=== PATIENT | male | born 1945 | race Caucasian/White ===

== ENCOUNTER 2018-09-30 17:14 | Observation (INO) ==
[2018-09-30] MEDS ORDERED: Isovue-370 500 ML BOTTLE IVP ONE ×2 (17:54→18:02)
[2018-09-30] MEDS ORDERED: Aspirin 81 MG TAB.CHEW PO STA (19:34)
[2018-09-30] MEDS ORDERED: Naloxone 0.4 MG/ML INJ IVP PRN (20:35)
[2018-09-30] MEDS ORDERED: Acetaminophen 325 MG TABLET PO PRN (20:35)
[2018-09-30] MEDS ORDERED: Ondansetron 4 MG/2 ML VIAL IVP PRN (20:35)
[2018-09-30] MEDS ORDERED: Nitroglycerin 0.4 MG TAB.SUBL SL PRN (20:40)
[2018-09-30] MEDS ORDERED: Ipratropium/Albuterol Neb 3 ML IH PRN (20:41)
[2018-09-30] MEDS ORDERED: *HR* Heparin 5,000 UNIT/ML VIAL IVP PRN ×2 (21:24)
[2018-09-30] MEDS ORDERED: *HR* Heparin 5,000 UNIT/ML VIAL IVP ONE (21:24)
[2018-09-30] MEDS ORDERED: Heparin 25,000 UNIT/250 ML D5W 25,000 UNIT/250 ML IV.SOLN IVC SCH (21:30)
[2018-09-30] MEDS: Metoprolol XL (24 HR) Succ 25 MG TAB.ER.24H PO SCH (22:29)
[2018-09-30 22:32] LABS: Hematocrit 35.5 % (37.5-50.1); Hemoglobin 11.7 g/dL (12.9-16.9); Mean Corpuscular Hemoglobin 28.8 pg (28.0-33.3); Mean Corpuscular Volume 87.4 fL (83.0-100.0); Mean Platelet Volume 9.2 fL (9.4-12.4); Platelet Count 232 K/mcL (140-400); Red Blood Count 4.06 M/mcL (4.19-5.50); Red Cell Distribution Width 15.9 % (11.5-14.5); White Blood Count 4.9 K/mcL (4.3-11.1)
[2018-09-30 22:41] LABS: Prothrombin Time 11.4 Seconds (9.4-12.1)
[2018-09-30 22:43] LABS: Heparin anti-factor XA UFH 0.02 IU/mL (0.30-0.70)
[2018-09-30] MEDS ORDERED: *HR* HYDROcodone/Acet 5/325 mg TABLET PO PRN (22:45)
[2018-10-01 04:47] LABS: Basophils # 0.1 K/mcL (0.0-0.2); Basophils % 1.2 %; Eosinophils # 0.2 K/mcL (0.0-0.6); Eosinophils % 3.3 %; Hematocrit 39.1 % (37.5-50.1); Hemoglobin 12.9 g/dL (12.9-16.9); Immature Granulocytes % 0.4 % (0-4); Lymphocytes # 0.7 K/mcL (0.6-4.6); Lymphocytes % 15.1 %; Mean Corpuscular Hemoglobin 28.3 pg (28.0-33.3); Mean Corpuscular Volume 85.7 fL (83.0-100.0); Mean Platelet Volume 9.2 fL (9.4-12.4); Monocytes # 0.3 K/mcL (0.0-1.3); Monocytes % 6.8 %; Neutrophils # 3.5 K/mcL (1.6-8.9); Platelet Count 241 K/mcL (140-400); Red Blood Count 4.56 M/mcL (4.19-5.50); Segmented Neutrophils % 73.2 %; White Blood Count 4.8 K/mcL (4.3-11.1)
[2018-10-01 05:06] LABS: BUN/Creatinine Ratio 12 (6-26); Blood Urea Nitrogen 7 mg/dL (8-23); Calcium 8.9 mg/dL (8.6-10.3); Carbon Dioxide 27 mEq/L (23-29); Chloride 99 mEq/L (98-107); Glucose 116 mg/dL (70-105); Magnesium 2.1 mg/dL (1.6-2.6); Osmolality,Calculated 279 (280-300); Potassium 3.7 mEq/L (3.5-5.1); Sodium 135 mEq/L (136-145); eGFR For African Americans > 60 (> 60); eGFR For Non-African Americans > 60 (> 60)
[2018-10-01] MEDS ORDERED: Tiotropium 18 MCG inhalation IH SCH (09:00)
[2018-10-01] MEDS ORDERED: Finasteride 5 MG TABLET PO SCH (09:00)
[2018-10-01] MEDS ORDERED: Aspirin 81 MG TAB.CHEW PO SCH (09:00)
[2018-10-01] MEDS ORDERED: Multivit/Ca/Min/Fe/FA 1 TAB TABLET PO SCH (09:00)
[2018-10-01] MEDS ORDERED: Magnesium Oxide 400 MG TABLET PO SCH (09:00)
[2018-10-01] MEDS ORDERED: Budesonide/Formoterol 160/4.5 1 PUFF INH IH SCH (10:00)
[2018-10-01] MEDS ORDERED: Regadenoson 0.4 MG/5 ML SYRINGE IVP ONE (11:34)
[2018-10-01] MEDS: Metoprolol XL (24 HR) Succ 25 MG TAB.ER.24H PO SCH (13:36)
[2018-10-01 15:46] VITALS: BP 111/73
== END 2018-10-01 15:57 | disposition home or self-care (01) ==
LOC: EMEROOARM 17:14 → 3BNU 17:14 → SUATTDRO 19:19 → 3BNU 20:05
PROVIDERS: ADMIT Pharmacist; ATTEND Family Medicine

== ENCOUNTER 2019-02-08 15:15 | Observation (INO) ==
[2019-02-08] MEDS ORDERED: Isovue-370 500 ML BOTTLE IVP ONE (15:53)
[2019-02-08] MEDS ORDERED: Naloxone 0.4 MG/ML INJ IVP PRN ×2 (18:05→18:06)
[2019-02-08] MEDS ORDERED: MOM Conc 10 ML UD.LIQ PO PRN (18:06)
[2019-02-08] MEDS ORDERED: Acetaminophen 325 MG TABLET PO PRN (18:06)
[2019-02-08] MEDS ORDERED: Mag Hydrox/Al Hydrox/Simeth 30 ML UDC PO PRN (18:06)
[2019-02-08] MEDS ORDERED: levoFLOXacin 750 MG/150 ML 750 MG/150 ML BAG IVPB SCH (18:15)
[2019-02-09 01:13] LABS: Hematocrit 32.5 % (37.5-50.1); Hemoglobin 11.1 g/dL (12.9-16.9); Mean Corpuscular HGB Conc 34.2 g/dL (31.6-35.5); Mean Corpuscular Hemoglobin 28.7 pg (28.0-33.3); Mean Platelet Volume 8.9 fL (9.4-12.4); Platelet Count 246 K/mcL (140-400); Red Blood Count 3.87 M/mcL (4.19-5.50); Red Cell Distribution Width 15.9 % (11.5-14.5)
[2019-02-09 01:26] LABS: BUN/Creatinine Ratio 13 (6-26); Blood Urea Nitrogen 8 mg/dL (8-23); Calcium 8.3 mg/dL (8.6-10.3); Carbon Dioxide 24 mEq/L (23-29); Chloride 98 mEq/L (98-107); Glucose 118 mg/dL (70-105); Magnesium 2.1 mg/dL (1.6-2.6); Osmolality,Calculated 267 (280-300); Phosphorous 2.5 mg/dL (2.7-4.5); Potassium 3.9 mEq/L (3.5-5.1); Sodium 129 mEq/L (136-145); eGFR For African Americans > 60 (> 60); eGFR For Non-African Americans > 60 (> 60)
[2019-02-09] MEDS: Levalbuterol Neb 1.25 MG/3 ML IH SCH ×2 (03:18→10:36)
[2019-02-09 07:44] VITALS: BP 114/78
[2019-02-09] MEDS ORDERED: levoFLOXacin 750 MG/150 ML 750 MG/150 ML BAG IVPB ONE (08:45)
[2019-02-09] MEDS ORDERED: Aspirin Enteric Coated 81 MG Tablet PO SCH (09:00)
[2019-02-09] MEDS ORDERED: Gabapentin 400 MG CAPSULE PO SCH (09:00)
[2019-02-09] MEDS ORDERED: Tiotropium 18 MCG inhalation IH SCH (09:00)
[2019-02-09] MEDS ORDERED: Finasteride 5 MG TABLET PO SCH (09:00)
[2019-02-09] MEDS ORDERED: Metoprolol XL (24 HR) Succ 25 MG TAB.ER.24H PO SCH (09:00)
[2019-02-09] MEDS ORDERED: Budesonide/Formoterol 160/4.5 1 PUFF INH IH SCH (10:00)
[2019-02-09] MEDS: Albuterol 2.5 MG/3 ML NEBULIZER IH SCH ×2 (10:37→11:17)
== END 2019-02-09 12:29 | disposition home or self-care (01) ==
LOC: 3BNU 15:15 → EMEROOARM 15:15 → SUATTDRO 19:47 → 3BNU 21:34
PROVIDERS: ADMIT Internal Medicine; ATTEND Internal Medicine